=== PATIENT | male | born 1965 | race Caucasian/White ===

== ENCOUNTER 2023-03-29 18:31 | Emergency (ER) | payer MEDICAID, OTHER ==
[~2023-03-29] VITALS: Ht 177.8 cm; Wt 99.0 kg
[2023-03-29 18:36] VITALS: BP 155/103; PULSE 84; RESP 20; TEMP 98.5; O2SAT 97
[2023-03-29] MEDS: LIDOCAINE HCL/PF 1% 10 MG/ML 5ML VIAL INFIL ONE (21:06)
[2023-03-29] MEDS: BACITRACIN ZINC OINT UDPKT TOP ONE (21:06)
[2023-03-29] MEDS: TETANUS, DIPHTHERIA, PERTUSSIS VAC/PF 0.5ML (>10YR OLD) IM ONE (21:16)
[2023-03-29] MEDS ORDERED: BO1 TP (21:34)
== END 2023-03-29 21:57 | disposition home or self-care (01) ==
LOC: ER 18:31
DX: S61.217A Laceration without foreign body of left little finger without damage to nail, initial encounter (principal); W26.8XXA Contact with other sharp object(s), not elsewhere classified, initial encounter; Y93.89 Activity, other specified; Y92.89 Other specified places as the place of occurrence of the external cause; Y99.8 Other external cause status
CPT/HCPCS: 99283; 90715; 12001; 90471; J3490